=== PATIENT | female | born 1945 | race Caucasian/White ===

== ENCOUNTER → 2016-12-06 | Outpatient (CLI) | payer MEDICARE, OTHER ==
--- NOTE | 2016-12-06 10:19 | RAD ---
DATE: 12/06/2016 EXAM: DIGITAL SCREEN RT W/CAD HISTORY: Previous left breast cancer COMPARISON: 12/06/2015 This study was interpreted with the benefit of Computerized Aided Detection (CAD). FINDINGS: There are scattered fibroglandular densities in the right breast. No new or enlarging breast densities are seen. A small opacity in the posterior aspect of the right breast just medial to the midline seen on the cc view has been present on multiple prior exams and is unchanged. There are numerous unchanged benign type calcifications . No suspicious microcalcifications have developed. IMPRESSION: Stable mammograms without evidence of malignancy. BI-RADS CATEGORY: 2 BENIGN FINDING(S) RECOMMENDED FOLLOW-UP: 12M 12 MONTH FOLLOW-UP PQRS compliance statement: Patient information was entered into a reminder system with a target due date for the next mammogram. Mammography is a sensitive method for finding small breast cancers, but it does not detect them all and is not a substitute for careful clinical examination. A negative mammogram does not negate a clinically suspicious finding and should not result in delay in biopsying a clinically suspicious abnormality. "Our facility is accredited by the [employer] Mammography Program."
== END | disposition home or self-care (01) ==
LOC: MAMMO 09:00
PROVIDERS: ATTEND Internal Medicine Hematology & Oncology
DX: Z12.31 Encounter for screening mammogram for malignant neoplasm of breast (principal)
CPT/HCPCS: G0202; 77067

== ENCOUNTER → 2016-12-25 | Outpatient (CLI) | payer MEDICARE, OTHER ==
--- NOTE | 2016-12-25 15:51 | KCIC ---
CHEST PA LATERAL History: Cough, clear phlegm Comparison: June 17, 2014 Findings: There is no infiltrate, pneumothorax, or effusion. The cardiac silhouette is within normal limits in size. There is again small likely granuloma of the lateral mid to inferior right hemithorax. There has been left mastectomy. Impression: 1. There is no evidence of acute cardiopulmonary disease. Electronically signed by: Andrez Stoll MD (12/25/2016 3:47 PM)
== END | disposition home or self-care (01) ==
LOC: KCIC 10:38
PROVIDERS: ATTEND Physician Assistant
DX: R05 Cough (principal)
CPT/HCPCS: 71020

== ENCOUNTER → 2017-01-17 | Outpatient (CLI) | payer MEDICARE, OTHER ==
--- NOTE | 2017-01-17 15:57 | KCIC ---
CT chest without contrast History: . Persistent cough. Breast cancer 12 years ago. Technique: No intravenous contrast per request. Multiplanar reformatted images were obtained. Exposure: One or more of the following individualized dose reduction techniques were utilized for this examination: 1. Automated exposure control 2. Adjustment of the mA and/or kV according to patient size 3. Use of iterative reconstruction technique. Findings: Vascular structures: Limited exam without contrast. No evidence of aneurysm. Mild atheromatous calcifications. Lymph nodes:No significant enlargement Thyroid gland:Visualized aspect is unremarkable. Heart: Mild coronary calcification. Changes of the left mastectomy. Pleural spaces: No significant effusion Lungs: Pulmonary nodule identified in the right middle lobe with dense central calcification compatible with a granuloma. There is a small noncalcified nodule in the right lower lobe measuring 4 mm diameter, series 6, image 45. Scattered additional small noncalcified pulmonary nodules are identified bilaterally, measuring 3 mm or less. No acute airspace consolidation. Trachea and central airways: Patent Bones: No destructive process Upper abdomen: Limited slices were obtained through the upper abdomen. Small low-density lesion left lobe of the liver measures 8 mm diameter, too small to characterize but may represent a cyst. Visualization limited without contrast. Small hiatal hernia. Impression: 1. Small noncalcified right lower lobe pulmonary nodule measures 4 mm, with additional smaller scattered noncalcified nodules measuring 3 mm or less. Significance uncertain, but considering the history of breast cancer, consider follow-up chest CT in no more than 12 months, as per Fleischner Society criteria. 2. No acute findings. Electronically signed by: Dami Fairbanks MD (01/17/2017 3:53 PM) [facility]
== END | disposition home or self-care (01) ==
LOC: KCIC CT 11:45
PROVIDERS: ATTEND Physician Assistant
DX: R91.1 Solitary pulmonary nodule (principal); R05 Cough; I70.0 Atherosclerosis of aorta; Z85.3 Personal history of malignant neoplasm of breast
CPT/HCPCS: 71250

== ENCOUNTER → 2017-12-18 | Outpatient (CLI) | payer MEDICARE, OTHER | END | disposition home or self-care (01) | LOC: KCIC 10:43 | DX: M11.242 Other chondrocalcinosis, left hand (principal); M15.2 Bouchard's nodes (with arthropathy) | CPT/HCPCS: 73110; 73130 ==

== ENCOUNTER 2018-06-11 10:42 | Emergency (ER) | payer MEDICARE, OTHER ==
[~2018-06-11] VITALS: Ht 170.2 cm; Wt 104.3 kg
[2018-06-11 11:25] VITALS: BP 118/56
[2018-06-11] MEDS ORDERED: predniSONE 10 MG TABLET PO ONE (11:45)
--- NOTE | 2018-06-11 11:51 | RAD ---
EXAM: Left ankle, 3 views. HISTORY: Pain. Fall. COMPARISON: None. FINDINGS: 3 views of the left ankle are obtained. There is no acute fracture, dislocation or subluxation. There are ossicles inferior to the medial and lateral malleolus, likely due to the sequela of remote injury. No osteochondral lesion is seen. There is a small to moderate plantar spur. There is calcification of the plantar fascia. There is diffuse ankle soft tissue swelling. IMPRESSION: 1. No acute osseous finding. 2. Diffuse ankle soft tissue swelling. 3. Corticated ossicles inferior to the medial and lateral malleoli, likely due to the sequela of remote injury. 4. Small to moderate plantar spur and calcification of the plantar fascia. Electronically signed by: Ramya Gonzalez MD (06/11/2018 11:48 AM) [id number]
[2018-06-11] MEDS ORDERED: HYDR-3164 PO (12:36)
--- NOTE | 2018-06-11 12:37 | PHYS DOC ---
Past Medical History Past Medical History: A-Fib Additional Past Medical Histor: LEFT BREAST CA Past Surgical History: Other Additional Past Surgical Histo: LEFT MASTECTOMY, RIGHT KNEE Alcohol Use: None Drug Use: None Adult General Chief Complaint Chief Complaint: ANKLE PROBLEM [facility] HPI Patient is a 73 year old [f__sex] who presents with [] Review of Systems Review of Systems Constitutional: Denies fever or chills [] Eyes: Denies change in visual acuity, redness, or eye pain [] HENT: Denies nasal congestion or sore throat [] Respiratory: Denies cough or shortness of breath [] Cardiovascular: No additional information not addressed in HPI [] GI: Denies abdominal pain, nausea, vomiting, bloody stools or diarrhea [] : Denies dysuria or hematuria [] Musculoskeletal: Denies back pain or joint pain [] Integument: Denies rash or skin lesions [] Neurologic: Denies headache, focal weakness or sensory changes [] Endocrine: Denies polyuria or polydipsia [] All other systems were reviewed and found to be within normal limits, except as documented in this note. Current Medications Current Medications Current Medications Medications (Trade) Dose Ordered Sig/Vivian Start Time Stop Time Status Last Admin Dose Admin Prednisone (Prednisone) 50 mg 1X ONCE 06/11/18 11:45 06/11/18 11:45 DC Allergies Allergies Allergies Coded Allergies Type Severity Reaction Last Updated Verified amoxicillin Allergy Intermediate RASH 06/11/18 Yes clavulanic acid Allergy Intermediate RASH 06/11/18 Yes Physical Exam Physical Exam Constitutional: Well developed, well nourished, no acute distress, non-toxic appearance. [] HENT: Normocephalic, atraumatic, bilateral external ears normal, oropharynx moist, no oral exudates, nose normal. [] Eyes: PERRLA, EOMI, conjunctiva normal, no discharge. [] Neck: Normal range of motion, no tenderness, supple, no stridor. [] Cardiovascular:Heart rate regular rhythm, no murmur [] Lungs & Thorax: Bilateral breath sounds clear to auscultation [] Abdomen: Bowel sounds normal, soft, no tenderness, no masses, no pulsatile masses. [] Skin: Warm, dry, no erythema, no rash. [] Back: No tenderness, no CVA tenderness. [] Extremities: No tenderness, no cyanosis, no clubbing, ROM intact, no edema. [] Neurologic: Alert and oriented X 3, normal motor function, normal sensory function, no focal deficits noted. [] Psychologic: Affect normal, judgement normal, mood normal. [] Current Patient Data Vital Signs Vital Signs Date Time Temp Pulse Resp B/P (MAP) Pulse Ox O2 Delivery O2 Flow Rate FiO2 06/11/18 11:25 97.9 85 18 118/56 (76) 97 Room Air 97.9 EKG EKG [] Radiology/Procedures Radiology/Procedures [] Course & Med Decision Making Course & Med Decision Making Pertinent Labs and Imaging studies reviewed. (See chart for details) [] Dragon Disclaimer Dragon Disclaimer This electronic medical record was generated, in whole or in part, using a voice recognition dictation system. Departure Departure Impression: Primary Impression: Left ankle sprain Disposition: 01 HOME, SELF-CARE Condition: STABLE Referrals: BOB WILKES MD (PCP) Patient Instructions: Ankle Sprain, Elastic Bandage and RICE Additional Instructions: Follow-up with your orthopedic doctor in 5-7 days for re-evaluation. Ice packs every 3-4 hours for 20-30 minutes at a time and elevate left lower extremity. Wear vi wrap and boot on left ankle/foot until follow-up with orthopedics. Take wrap/boot off to monitor skin condition daily- return with any worsening symptoms or concerns if unable to get into orthopedic office. Scripts Hydrocodone/Apap 5-325 (NORCO 5-325 TABLET) 1 Each Tablet 1 TAB PO PRN Q6HRS PRN for PAIN, #10 TAB 0 Refills Prov: KENAN LEIVA APRN 06/11/18 KENAN LEIVA APRN Jun 11, 2018 12:37
== END 2018-06-11 12:45 | disposition home or self-care (01) ==
LOC: ER 10:42
DX: S93.402A Sprain of unspecified ligament of left ankle, initial encounter (principal); Z88.1 Allergy status to other antibiotic agents; Z88.8 Allergy status to other drugs, medicaments and biological substances; I48.91 Unspecified atrial fibrillation; W01.0XXA Fall on same level from slipping, tripping and stumbling without subsequent striking against object, initial encounter; Y93.89 Activity, other specified; Y92.89 Other specified places as the place of occurrence of the external cause; Y99.8 Other external cause status
CPT/HCPCS: 73610; 99283

== ENCOUNTER → 2018-06-18 | Outpatient (CLI) | payer MEDICARE, OTHER ==
[2018-06-11 11:25] VITALS: BP 118/56
[~2018-06-18] MED LIST: HYDR-3164 PO
--- NOTE | 2018-06-18 16:54 | KCIC ---
3 view study of the left ankle Clinical indications: Lateral left ankle pain and bruising after a fall in June 09, 2018. FINDINGS: Diffuse soft tissue edema is evident. No acute fracture or dislocation or osteolytic process is seen. The mortise ankle joint is intact. Prominent plantar and posterior spurs of the calcaneus are seen. There is a prominent soft tissue calcification seen just medial to the distal talus. This may represent calcific tendinitis of the flexor tendons. IMPRESSION: No acute fracture. Electronically signed by: Jamie Mei MD (06/18/2018 4:50 PM) [place] [id number]
== END | disposition home or self-care (01) ==
LOC: KCIC 16:10
PROVIDERS: ATTEND Internal Medicine Cardiovascular Disease
DX: M77.32 Calcaneal spur, left foot (principal); R60.0 Localized edema
CPT/HCPCS: 73610

== ENCOUNTER → 2019-01-23 | Outpatient (CLI) | payer MEDICARE, OTHER ==
--- NOTE | 2019-01-23 10:34 | CARD ---
MR#: [id number] Date of Study: 01/23/2019 Ordering Physician: AYUSH SCOTT, Referring Physician: AYUSH SCOTT, Tech: Juliet Chin [facility] APPROVED REPORT EXAM: Two-dimensional and M-mode echocardiogram with Doppler and color Doppler. Other Information Quality : Good Rhythm : Atrial Fibrillation INDICATION Atrial Fibrillation 2D DIMENSIONS RVDd2.5 (2.9-3.5cm)Left Atrium(2D)4.6 (1.6-4.0cm) IVSd1.0 (0.7-1.1cm)Aortic Root(2D)2.8 (2.0-3.7cm) LVDd4.8 (3.9-5.9cm)LVOT Diameter2.1 (1.8-2.4cm) PWd1.0 (0.7-1.1cm)LVDs3.1 (2.5-4.0cm) FS (%) 36.8 %SV72.6 ml LVEF(%)60.0 (>50%) Aortic Valve AoV Peak Eugenio.108.4cm/sAoV VTI27.0cm AO Peak GR.4.7mmHgLVOT Peak Eugenio.81.4cm/s LVOT VTI 19.88cmAO Mean GR.3mmHg CRISTAL (VMAX)2.10xe2HHZ (VTI)2.43cm2 Mitral Valve MV E Lcrrqcha004.1cm/sMV DECEL AEZU700ln MV AEA52tuNXA (PHT)5.86cm2 Tricuspid Valve TR P. Sqcktpmn211sm/sRAP GXUNBCXN8zxAy TR Peak Gr.60aoMpGNGD83tcUj Pulmonary Vein S1 Cfitezpx81.1cm/sD2 Plbxwyag50.8cm/s LEFT VENTRICLE The left ventricle is normal size. There is mild concentric left ventricular hypertrophy. The left ve ntricular systolic function is normal and the ejection fraction is within normal range. The Ejection Fraction is 55-60%. There is normal LV segmental wall motion. RIGHT VENTRICLE The right ventricle is normal size. The right ventricular systolic function is normal. ATRIA The left atrium is moderately dilated. The right atrium is moderately dilated. The interatrial septum is intact with no evidence for an atrial septal defect or patent foramen ovale as noted on 2-D or Do ppler imaging. AORTIC VALVE The aortic valve is calcified but opens well. Doppler and Color Flow revealed no significant aortic r egurgitation. There is no significant aortic valvular stenosis. MITRAL VALVE The mitral valve is calcified but opens well. There is no evidence of mitral valve prolapse. There is no mitral valve stenosis. Doppler and Color-flow revealed trace mitral regurgitation. TRICUSPID VALVE The tricuspid valve is normal in structure and function. Doppler and Color Flow revealed mild tricusp id regurgitation. The PA pressure was estimated at 32 mmHg. There is mild pulmonary hypertension. The re is no tricuspid valve stenosis. PULMONIC VALVE Doppler and Color Flow revealed mild pulmonic valvular regurgitation. There is no pulmonic valvular s tenosis. GREAT VESSELS The aortic root is normal in size. The ascending aorta is not well seen. The IVC is normal in size an d collapses >50% with inspiration. PERICARDIAL EFFUSION There is no evidence of significant pericardial effusion. Critical Notification Critical Value: No <Conclusion> The left ventricular systolic function is normal and the ejection fraction is within normal range. Th e Ejection Fraction is 55-60%. Normal wall motion. Moderate to severe biatrial enlargement. Signed by : Ayush Scott, Electronically Approved : 01/23/2019 10:33:48
== END | disposition home or self-care (01) ==
LOC: ECHO 08:56
PROVIDERS: ATTEND Internal Medicine Cardiovascular Disease
DX: I08.8 Other rheumatic multiple valve diseases (principal); I27.20 Pulmonary hypertension, unspecified; I48.2 Chronic atrial fibrillation
CPT/HCPCS: 93306

== ENCOUNTER → 2020-03-09 | Outpatient (CLI) | payer MEDICARE, OTHER ==
[2020-03-09 15:05] LABS: ALBUMIN 3.3 g/dL (3.4-5.0); ALBUMIN/GLOBULIN RATIO 0.9 (1.0-1.7); CALCIUM 8.7 mg/dL (8.5-10.1); CREATININE 0.8 mg/dL (0.6-1.0); GFR 70.3; TOTAL BILIRUBIN 0.6 mg/dL (0.2-1.0)
[2020-03-10 10:17] LABS: BASO # 0.1 x10^3/uL (0.0-0.2); BASO % 1 % (0-3); EOS # 0.1 x10^3/uL (0.0-0.7); EOS % 1 % (0-3); HEMATOCRIT 42.4 % (36.0-47.0); HEMOGLOBIN 14.5 g/dL (12.0-15.5); LYMPH % 27 % (24-48); MEAN CORPUSCULAR HEMOGLOBIN 32 pg (25-35); MEAN CORPUSCULAR HGB CONC 34 g/dL (31-37); MEAN CORPUSCULAR VOLUME 93 fL (79-100); MONO # 0.6 x10^3/uL (0.0-1.1); MONO % 8 % (0-9); NEUT # 4.7 x10^3/uL (1.8-7.7); NEUT % 63 % (31-73); PLATELET COUNT 191 x10^3/uL (140-400); RED BLOOD COUNT 4.57 x10^6/uL (3.50-5.40); RED CELL DISTRIBUTION WIDTH 12.8 % (11.5-14.5); WHITE BLOOD COUNT 7.5 x10^3/uL (4.0-11.0)
== END | disposition home or self-care (01) ==
LOC: LAB 13:48
PROVIDERS: ATTEND Internal Medicine Cardiovascular Disease
DX: I48.91 Unspecified atrial fibrillation (principal)
CPT/HCPCS: 36415; 80053; 83880; 85025

== ENCOUNTER → 2020-09-08 | Outpatient (CLI) | payer MEDICARE, OTHER ==
--- NOTE | 2020-09-12 08:54 | RAD ---
DATE: 09/08/2020 9:55 AM EXAM: MAMMO FABI DIAG RT HISTORY: Screening . Personal history of left mastectomy in 2005. She had the COVID vaccine in the right arm yesterday. COMPARISON: Screening mammogram of 04/09/2019, 12/17/2017, 12/06/2016 and 12/06/2015. CC and MLO views of the right breast were performed. Breast tomosynthesis was performed in CC and MLO projections. This study was interpreted with the benefit of Computerized Aided Detection (CAD). FINDINGS: Breast Density: HETERO The breast parenchyma Is heterogeneously dense, which could reduce sensitivity of mammography. Breast parenchyma level C A possible developing asymmetry in the right breast best seen on the cc view projecting over the retroglandular fat at the approximate 12:30 o'clock position 8 cm from the nipple needs additional imaging. There are associated calcifications at its periphery that may be developing as well. Recommend spot magnification views in the CC projection and a full-field lateral view as well as correlative ultrasound. To assist with ultrasound probe positioning, and acquisition of additional mammographic views in a tangential projection to this asymmetry, marking the skin surface using a mammographic grid and skin marker could be of benefit. IMPRESSION: Right breast asymmetry, findings for which additional imaging is advised. BI-RADS CATEGORY: 0 INCOMPLETE: NEEDS ADDITIONAL IMAGING EVALUATION AND/OR PRIOR MAMMOGRAMS FOR COMPARISON. RECOMMENDED FOLLOW-UP: ADD ADDITIONAL IMAGING The patient will be contacted to return for additional imaging and a supplemental report will follow. PQRS compliance statement: Patient information was entered into a reminder system with a target due date for the next mammogram. Mammography is a sensitive method for finding small breast cancers, but it does not detect them all and is not a substitute for careful clinical examination. A negative mammogram does not negate a clinically suspicious finding and should not result in delay in biopsying a clinically suspicious abnormality. "Our facility is accredited by the [employer] Mammography Program."
== END ==
LOC: MAMMO 09:55
PROVIDERS: ATTEND Family Medicine
DX: Z12.31 Encounter for screening mammogram for malignant neoplasm of breast (principal); N64.89 Other specified disorders of breast; Z90.12 Acquired absence of left breast and nipple
CPT/HCPCS: 77061; 77063; 77065; 77067; G0279

== ENCOUNTER → 2020-09-27 | Outpatient (CLI) | payer MEDICARE, OTHER ==
--- NOTE | 2020-09-27 12:25 | RAD ---
Examination: 1. Right digital diagnostic mammogram. 2. Limited right breast ultrasound. INDICATION: 75-year-old woman status post left mastectomy in 2004 is recalled from screening for asym metry in the posterior medial right breast best seen on the cc view. COMPARISON: 09/09/2008, 12/06/2015, 12/27/2017, and 04/09/2019 right mammograms. TECHNIQUE: A full field right ML view and magnification CC spot view of the right breast were obtaine d using 2-D technique. Targeted ultrasound of the upper inner quadrant right breast was also pursued. FINDINGS: Heterogeneously dense breast parenchyma. Gradual coarsening of thick, rodlike calcifications in a ductal pattern with some rounded and punctat e calcifications are evident and have gradually increased over time. These are favored to reflect cinthia ign secretory calcifications. Asymmetry recalled from screening on additional views shows no significant interval change dating eloina k at least 4 years. This is compatible with a benign etiology. No architectural distortion, nipple retraction or skin thickening is apparent. No developing mass. Targeted ultrasound of the right breast in the upper outer quadrant reveals a 7 mm oval circumscribed parallel orientation hypoechoic mass with low-level internal echoes and no internal vascularity, com patible with a benign complicated cyst. Ultrasound of the right axilla shows no adenopathy. IMPRESSION: Benign findings on right diagnostic mammogram and targeted right breast ultrasound. No evidence of ma lignancy. BI-RADS Category 2 Benign findings Recommend return to routine screening and maintenance of self breast awareness. Discussed with danyelle chen Patient entered into a reminder system with targeted due date for next mammogram. Electronically signed by: Sadiq Gimenez MD (09/27/2020 12:22 PM) [id number]
== END ==
LOC: MAMMO 11:08
PROVIDERS: ATTEND Family Medicine
DX: R92.8 Other abnormal and inconclusive findings on diagnostic imaging of breast (principal)
CPT/HCPCS: 76641; 77065

== ENCOUNTER → 2020-09-30 | Outpatient (CLI) | payer MEDICARE, OTHER ==
--- NOTE | 2020-09-30 16:13 | KCIC ---
Examination: MRI right thigh without contrast History: History of fall, injury COMPARISON: None available Technique: Multiplanar, multisequence MR imaging of the right thigh was performed without contrast FINDINGS: The right femoral head is within the acetabulum. Joint space loss right hip joint likely degenerative changes. There is no acute fracture or dislocation identified. There is full-thickness tear of the hamstring tendon attachment to the ischial tuberosity with tendon retraction to the level of the mid thigh. There is large heterogeneous fluid identified along the rees mstring tendons extending from proximal to distal aspect of the hamstring tendons throughout likely secondary to hemorrhage secondary to full-thickness tear. Increased T2 signal identified in the soft tissue of the right throughout likely edema. IMPRESSION: 1. Complete tear of the hamstring tendons attachment to the ischial tuberosity with tendon retraction up to the level of mid thigh. Very few of the hamstring tendon fibers appear intact. Large hemorrhag e identified along the hamstring tendons throughout. Electronically signed by: Jin Pillai MD (09/30/2020 4:11 PM) [id number]
== END ==
LOC: KCIC MRI 14:24
PROVIDERS: ATTEND Family Medicine
DX: S76.311A Strain of muscle, fascia and tendon of the posterior muscle group at thigh level, right thigh, initial encounter (principal); T14.8XXA Other injury of unspecified body region, initial encounter; M21.851 Other specified acquired deformities of right thigh; W19.XXXA Unspecified fall, initial encounter; Y93.89 Activity, other specified; Y92.89 Other specified places as the place of occurrence of the external cause; Y99.8 Other external cause status
CPT/HCPCS: 73718

== ENCOUNTER → 2021-09-25 | Outpatient (CLI) | payer MEDICARE, OTHER ==
--- NOTE | 2021-09-25 13:42 | CARD ---
MR#: [id number] Date of Study: 09/25/2021 Ordering Physician: AYUSH SCOTT, Referring Physician: AYUSH SCOTT, Tech: Lynnette Mckeon [facility] APPROVED REPORT EXAM: Two-dimensional and M-mode echocardiogram with Doppler and color Doppler. Other Information Quality : AverageHR: 65bpm Rhythm : Atrial Fibrillation INDICATION Atrial Fibrillation RISK FACTORS Hypertension Obesity 2D DIMENSIONS RVDd3.1 (2.9-3.5cm)Left Atrium(2D)5.1 (1.6-4.0cm) IVSd1.0 (0.7-1.1cm)Aortic Root(2D)3.0 (2.0-3.7cm) LVDd4.5 (3.9-5.9cm)LVOT Diameter2.2 (1.8-2.4cm) PWd1.1 (0.7-1.1cm)LVDs2.6 (2.5-4.0cm) FS (%) 42.4 %SV69.3 ml LVEF(%)73.6 (>50%) Aortic Valve AoV Peak Eugenio.137.9cm/sAoV VTI32.7cm AO Peak GR.7.6mmHgLVOT Peak Eugenio.85.2cm/s AO Mean GR.3mmHgAVA (VMAX)2.42cm2 Pulmonary Valve PV Peak Wlxtrqsc20.3cm/s Tricuspid Valve TR P. Qlvyvkdd747tc/sTR Peak Gr.30mmHg LEFT VENTRICLE The left ventricle is normal size. There is normal left ventricular wall thickness. The left ventricu lar systolic function is normal. Estimated ejection 55-60%. There is normal LV segmental wall motion. RIGHT VENTRICLE The right ventricle is normal size. There is normal right ventricular wall thickness. The right ventr icular systolic function is normal. ATRIA The left atrium is moderately dilated. The right atrium is severely dilated. The interatrial septum i s intact with no evidence for an atrial septal defect or patent foramen ovale as noted on 2-D or Dopp ler imaging. AORTIC VALVE The aortic valve is thickened but opens well. Doppler and Color Flow revealed no significant aortic r egurgitation. There is no significant aortic valvular stenosis. MITRAL VALVE The mitral valve is normal in structure and function. There is no evidence of mitral valve prolapse. There is no mitral valve stenosis. Doppler and Color-flow revealed mild mitral regurgitation. TRICUSPID VALVE The tricuspid valve is normal in structure and function. Doppler and Color Flow revealed mild to mode rate tricuspid regurgitation. Estimated PAP 35 mmHg. There is no tricuspid valve stenosis. PULMONIC VALVE The pulmonary valve is normal in structure and function. Doppler and Color Flow revealed mild to mode rate pulmonic valvular regurgitation. GREAT VESSELS The aortic root is normal in size. The ascending aorta is normal in size. The IVC is normal in size a nd collapses >50% with inspiration. PERICARDIAL EFFUSION There is no evidence of significant pericardial effusion. Critical Notification Critical Value: No <Conclusion> The left ventricular systolic function is normal. Estimated ejection 55-60%. There is normal LV segmental wall motion. Mild mitral regurgitation. Mild to moderate tricuspid regurgitation. Estimated PAP 35 mmHg. There is no evidence of significant pericardial effusion. Signed by : Cliff Gamez, Electronically Approved : 09/25/2021 13:42:09
== END ==
LOC: ECHO 07:50
PROVIDERS: ATTEND Internal Medicine Cardiovascular Disease
DX: I08.8 Other rheumatic multiple valve diseases (principal); I48.91 Unspecified atrial fibrillation
CPT/HCPCS: 93306; C8929

== ENCOUNTER → 2021-11-07 | Outpatient (CLI) | payer MEDICARE, OTHER ==
--- NOTE | 2021-11-07 10:31 | RAD ---
Right digital screening 2-D and 3-D (digital breast tomosynthesis) mammogram: Reason for examination: Routine screening.. Personal history of left breast carcinoma with mastectomy in 2004. Comparison: Mammograms from the 09/27/2020, 09/08/2020, 04/09/2019. Interpretation was made with the benefit of CAD. FINDINGS: Breast density: Category B. There are scattered areas of fibroglandular density. No suspicious new breast mass, malignant appearing calcifications, or architectural distortion is see n. There are scattered benign calcifications. There are unchanged small asymmetries. IMPRESSION: No evidence of malignancy. Assessment: BI-RADS 2. Benign findings. Recommendation: Routine screening mammograms. The patient will receive a letter with the results in the mail. Patient information will be entered i nto the mammography reminder system with a target recall date for the next mammogram. A reminder kari er will be generated. Electronically signed by: Clair Dey MD (11/07/2021 10:28 AM) [id number]
== END ==
LOC: MAMMO 08:56
PROVIDERS: ATTEND Family Medicine
DX: Z12.31 Encounter for screening mammogram for malignant neoplasm of breast (principal)
CPT/HCPCS: 77063; 77067